=== PATIENT | female | born 1955 | race Caucasian/White ===

== ENCOUNTER → 2020-08-08 | Outpatient (CLI) | payer MEDICARE, OTHER ==
[~2020-08-08] MED LIST: REGADENOSON 0.4 MG/5 ML SYRINGE ONE
== END | disposition home or self-care (01) ==
LOC: CVU 06:50
PROVIDERS: ATTEND Internal Medicine Cardiovascular Disease
DX: I08.0 Rheumatic disorders of both mitral and aortic valves (principal); I25.9 Chronic ischemic heart disease, unspecified; R06.02 Shortness of breath; I10 Essential (primary) hypertension; R01.1 Cardiac murmur, unspecified; R42 Dizziness and giddiness
CPT/HCPCS: 78452; 93017; 93306; 93356; A9502; J2785

== ENCOUNTER 2020-09-15 09:52 | Day surgery (SDC) | payer MEDICARE, OTHER ==
[~2020-09-15] VITALS: Ht 162.6 cm; Wt 79.0 kg
[2020-09-15] MEDS ORDERED: SODIUM CHLORIDE 0.9% 1,000 ML IV SCH (11:00)
[2020-09-15] MEDS ORDERED: ASPIRIN 325 MG TABLET EC PO ONE (11:00)
[2020-09-15 11:08] VITALS: BP 142/63
[2020-09-15 11:11] LABS: BASOPHILS % (AUTO) 1 % (0-1); EOSINOPHILS % (AUTO) 1 % (1-7); LYMPHOCYTES % (AUTO) 23 % (22-44); MD NO; MEAN CORPUSCULAR HEMOGLOBIN 30.3 pg (27.0-34.8); MEAN CORPUSCULAR HGB CONC 33.7 g/dL (32.4-35.8); MEAN PLATELET VOLUME 9.9 fL (7.4-10.4); MONOCYTES % (AUTO) 7 % (2-9); NEUTROPHILS % (AUTO) 68 % (42-75); PLATELET COUNT 247 x10^3/uL (130-400); RED BLOOD COUNT 4.66 x10^6/uL (3.82-5.3); RED CELL DISTRIBUTION WIDTH 12.7 % (9.6-15.2)
[2020-09-15] MEDS ORDERED: METO25TA91 PO (11:11)
[2020-09-15] MEDS ORDERED: MOME13HF INH (11:11)
[2020-09-15] MEDS ORDERED: ATOR10TA PO (11:12)
[2020-09-15] MEDS ORDERED: ALEN70TA77 PO (11:12)
[2020-09-15] MEDS ORDERED: ALBU8.5H8 INH (11:12)
[2020-09-15] MEDS ORDERED: HYDR12.517 PO (11:13)
[2020-09-15] MEDS ORDERED: ENAL20TA9 PO (11:13)
[2020-09-15] MEDS ORDERED: UBID100C24 PO (11:14)
[2020-09-15] MEDS ORDERED: OMEP40CA42 PO (11:14)
[2020-09-15] MEDS ORDERED: OMEG-170 PF (11:14)
[2020-09-15 11:23] LABS: ANION GAP 4 mmol/L (5-15); CALCIUM 8.7 mg/dL (8.5-10.1); CHLORIDE 111 mmol/L (98-107); CREATININE 0.85 mg/dL (0.55-1.02)
[2020-09-15] MEDS ORDERED: MIDAZOLAM 1 MG/ML, 2ML ONE ×2 (11:42→12:21)
[2020-09-15] MEDS ORDERED: LIDOCAINE-MPF 1%, 5ML ONE (11:42)
[2020-09-15] MEDS ORDERED: HEPARIN 1,000 UNITS/ML, 10ML ONE (11:42)
[2020-09-15] MEDS ORDERED: VERAPAMIL 2.5 MG/ML, 2ML ONE (11:42)
[2020-09-15] MEDS ORDERED: FENTANYL PF 100 MCG/2ML ONE (11:42)
== END 2020-09-15 17:32 | disposition home or self-care (01) ==
LOC: CACL 09:52
PROVIDERS: ATTEND Internal Medicine Cardiovascular Disease
DX: R93.1 Abnormal findings on diagnostic imaging of heart and coronary circulation (principal); I10 Essential (primary) hypertension; E78.2 Mixed hyperlipidemia; Z72.0 Tobacco use; Z79.899 Other long term (current) drug therapy; Z98.890 Other specified postprocedural states
CPT/HCPCS: 36415; 80048; 85025; 93458; 99156; 99157; C1769; C1894; J1644; J2250; J3010; Q9967

== ENCOUNTER → 2021-05-09 | Outpatient (CLI) | payer MEDICARE, OTHER | END | disposition home or self-care (01) | LOC: CFH 12:37 | PROVIDERS: ATTEND Nurse Practitioner Family | DX: Z12.2 Encounter for screening for malignant neoplasm of respiratory organs (principal); F17.211 Nicotine dependence, cigarettes, in remission ==